=== PATIENT | male | born 1990 | race Caucasian/White ===

== ENCOUNTER 2025-04-07 09:21 | Day surgery (SDC) | payer OTHER, SELFPAY ==
--- NOTE | 2025-04-07 | PATH_ITS ---
[facility] Accession Number: [id number] No. of containers..03 Tissue . 01 Material submitted: . PART A: duodenum - DUODENUM BIOPSY PART B: gastrointestinal site - ANTRUM BIOPSY PART C: esophagus, E-G Junction - GE JUNCTION BIOPSY . 01 Diagnosis: A. DUODENUM, BIOPSY: Histologically unremarkable duodenal mucosa. Negative for villous blunting and intraepithelial lymphocytosis. Negative for dysplasia and malignancy. . B. STOMACH, ANTRUM, BIOPSY: Antral mucosa with focal chronic inflammation. Negative for Helicobacter organisms by IHC stain. Negative for intestinal metaplasia, dysplasia, and malignancy. . C. GASTROESOPHAGEAL JUNTION, BIOPSY: Squamous mucosa with mild reflux changes. Columnar component not present for evaluation. Negative for intraepithelial eosinophilia, dysplasia, and malignancy. [facility] 04/19/2025 [facility]1 Local . 01 Comment: Immunohistochemistry for Helicobacter organisms is performed on block B1 and is negative. . - Technical Note: The immunohistochemical stains reported were performed with appropriate controls at [facility] ([address], [facility] [address]). This test was developed and performance characteristics validated by [facility]. It has not been cleared or approved by the Food and Drug Administration. . 01 Electronically signed: . Stephanie Bethea DO, Pathologist NPI- [id number] . 01 Gross description: . A. Received in formalin with two patient identifiers and duodenum biopsy, are two 0.2 to 0.3 cm rosas tissue fragments. Entirely submitted in cassette A1. B. Received in formalin with two patient identifiers and antrum, are three 0.2 to 0.3 cm rosas tissue fragments. Entirely submitted in cassette B1. C. Received in formalin with two patient identifiers and GE junction, are two 0.1 to 0.2 cm rosas tissue fragments. Entirely submitted in cassette C1. ([id number]) /ELIJAH 04/13/20259 Local . 01 Pathologist provided ICD-10: R10.13 . 01 CPT . 925437, 254291, 572488, [id number] Specimen Comment: A courtesy copy of this report has been sent to [phone] Performed at: [address] [address], [place], [place] [id number] MD Pedro Orosco MD Phone: [phone]
[2025-04-07] MEDS: LACTATED RINGERS 1,000 ML 42 ML IV (09:49)
[2025-04-07 09:52] VITALS: BP 120/78; PULSE 87; RESP 16; TEMP 36.2; O2SAT 98
--- NOTE | 2025-04-07 09:54 | P.HP_ITS ---
History of Present Illness History of Present Illness Date Patient Seen: 04/07/25 Time Patient Seen: 09:54 Chief complaint: EGD w/poss bx Narrative: Jose Alberto is a 34-year-old man with abdominal pain after eating. See the prior office note for details. His pain has been better lately. Meds Home Medications and Allergies Home Medications ?Medication ?Instructions ?Recorded ?Confirmed ?Type dextroamphetamine-amphetamine 5 mg 1 tab PO DAILY 01/2504/07/25 History tablet dextroamphetamine-amphetamine ER 1 cap PO QAM 02/21/25 04/07/25 History 25 mg 24hr capsule,extend release esomeprazole magnesium 40 mg 40 mg PO DAILY 02/21/25 1 06/07/24 History capsule,delayed release nebivolol 5 mg tablet 5 mg PO DAILY 02/21/2504/07 History Allergies Allergy/AdvReac Type Severity Reaction Status Date / Time No Known Drug Allergies Allergy Verified 02/21/25 13:25 Exam Const General: No acute distress Assessment & Plan Assessment and plan (1) Abdominal pain: Qualifiers: Abdominal location: right upper quadrant Qualified Code(s): R10.11 - Right upper quadrant pain Status: Acute Plan Esophagogastroduodenoscopy for abdominal pain Time-Based Coding :: [TOTAL MINUTES] spent with patient and on the chart (including review of chart, obtaining history, exam, reviewing outside data, placing orders, documenting exam and treatment plan, and counseling patient) on [DATE]. PROFEE Bicycle Service Technician Document charge(s): No
--- NOTE | 2025-04-07 10:46 | P.OP.EGD_ITS ---
Operative Date/Time/Diagnoses Date of procedure: 04/07/25 Time of procedure: 10:47 Pre-op diagnosis: Abdominal pain Post-op diagnosis: same Procedure & Clinicians Study performed: Esophagogastroduodenoscopy Same procedure(s) as scheduled: Yes Surgeon: Yaw Espinal Anesthesia Type: MAC +/- Procedure Notes Procedure in detail: Surgeon: Yaw Espinal MD Anesthesia: Zocm Tsang LOGGING EQUIPMENT MECHANIC LOGGING EQUIPMENT MECHANIC A timeout was performed. A bite blocked was placed. The patient was positioned in the left lateral decubitus position. Anesthesia was administered. The endoscope was inserted through the bite block and passed through the esophagus and stomach and into the duodenum. The duodenal mucosa appeared normal. Random biopsies were taken from the duodenal mucosa with cold forceps. The scope was withdrawn into the duodenal bulb and no abnormalities were seen. The scope was withdrawn into the stomach. No gross abnormalities were seen. Random biopsies were taken from the antrum with the cold forceps. The rest of the stomach was normal. The scope was retroflexed and no hiatal hernia was seen. The scope was withdrawn into the esophagus and a very short segment of salmon-colored mucosa was noted at the GE junction and biopsies were taken with the cold forceps. The remainder of the esophagus was normal. The scope was withdrawn. The patient was awakened and brought to recovery. Sedation time: 7 minutes Findings: A short-segment patch of salmon-colored mucosa at the GE junction Estimated Blood Loss: 2 Complications: none Post-procedure Disposition: PACU
[2025-04-07 10:50] VITALS: BP 108/61; PULSE 86; RESP 8; TEMP 36.1; O2SAT 96
[2025-04-07 10:54] VITALS: BP 111/59; PULSE 86; RESP 14; O2SAT 96
[2025-04-07 10:59] VITALS: BP 110/56; PULSE 91; RESP 19; TEMP 36.1; O2SAT 97
[2025-04-07 11:04] VITALS: BP 116/57; PULSE 86; RESP 17; TEMP 36.2; O2SAT 97
== END 2025-04-07 12:25 | disposition home or self-care (01) ==
PROVIDERS: Visit Provider Surgery
PROC: 0DJ08ZZ Inspection of Upper Intestinal Tract, Via Natural or Artificial Opening Endoscopic (ICD-10-PCS; CPT 43239; principal; 2025-04-07 10:30)
DX: K29.50 Unspecified chronic gastritis without bleeding (principal); K21.9 Gastro-esophageal reflux disease without esophagitis; R10.11 Right upper quadrant pain; E66.9 Obesity, unspecified
CPT/HCPCS: 43239; J2704; J3010; J7120